=== PATIENT | female | born 1940 | race Caucasian/White ===

== ENCOUNTER 2016-06-09 12:17 | Observation (INO) | payer MEDICARE ==
[~2016-06-09] VITALS: Ht 165.1 cm; Wt 54.4 kg
[2016-06-09 12:41] LABS: BASOPHILS % (AUTO) 2 % (0-2); EOSINOPHILS # (AUTO) 0.1 10^3uL; EOSINOPHILS % (AUTO) 1 % (0-4); MEAN PLATELET VOLUME 8.6 FL (6.0-9.5); MONOCYTES % (AUTO) 14 % (3-11); NEUTROPHILS # (AUTO) 3.8 X10^3; NEUTROPHILS % (AUTO) 54 % (51-67); PLATELET COUNT 183 10^3uL (150-450)
[2016-06-09 12:44] LABS: MEAN CORPUSCULAR HEMOGLOBIN 36.7 PG (26.0-34.0); MEAN CORPUSCULAR HGB CONC 36.3 g/dL (31.0-37.0); MEAN CORPUSCULAR VOLUME 101 FL (80-100)
[2016-06-09 12:50] LABS: BILIRUBIN,URINE Negative (Negative); CLARITY,URINE Clear; GLUCOSE, URINE (UA) Negative (Negative); LEUKOCYTE ESTERASE ,URINE Negative (Negative)
[2016-06-09 12:51] LABS: COLOR,URINE Dark Yellow
[2016-06-09 12:53] LABS: URINE CENTRIFUGED VOLUME 11 mL
[2016-06-09 12:56] LABS: RBC,URINE 0-2 /HPF
[2016-06-09 12:58] LABS: AMPHETAMINE SCREEN, URINE Negative (Negative); CANNABINOID SCREEN, URINE Negative (Negative); METHAMPHETAMINE SCREEN URINE S NEGATIVE (NEGATIVE); OPIATE SCREEN URINE Negative (Negative); PROPOXYPHENE STAT NEGATIVE (NEGATIVE)
[2016-06-09 13:03] LABS: ALBUMIN 4.1 g/dL (3.4-5.0); ALKALINE PHOSPHATASE 90 U/L (38-126); ANION GAP 18.7 MEQ/L (3-15); BUN/CREATININE RATIO 19 (10-20); CALCULATED IONIZED CALCIUM 3.9 mg/dL (3.8-4.6); CREATINE KINASE 49 U/L (30-135); TOTAL PROTEIN 8.3 g/dL (6.4-8.5)
[2016-06-09] MEDS ORDERED: CALCIUM CARBONATE CHEWABLE 300 MG (TUMS) TABLET PO ONE (13:25)
[2016-06-09] MEDS ORDERED: LORazepam 2 MG/ML (ATIVAN) 1 ML VIAL IV ONE (13:25)
[2016-06-09] MEDS: MAGNESIUM SULFATE 1GM VIAL 2 GM, THIAMINE INJ 100 MG, MULTIVITAMIN INJ 10 ML in D5LR 1,... IV SCH ×5 (14:19→21:33)
--- NOTE | 2016-06-09 14:19 | NUR ---
Dr. Lance in and examines.
[2016-06-09] MEDS ORDERED: PROMETHAZINE HCL INJ 12.5 MG in SODIUM CHLORIDE 25 ML IV PRN (15:30)
[2016-06-09] MEDS ORDERED: CALCIUM CARBONATE CHEWABLE 300 MG (TUMS) TABLET PO PRN (15:30)
[2016-06-09] MEDS ORDERED: ONDANSETRON 2 MG/ML (Z0FRAN) 2 ML VIAL IV PRN (15:30)
[2016-06-09] MEDS ORDERED: IBUPROFEN 600 MG (MOTRIN) TAB PO PRN (15:30)
[2016-06-09] MEDS ORDERED: HALOPERIDOL 5 MG/ML (HALDOL) 1 ML AMP IM PRN (15:30)
[2016-06-09] MEDS ORDERED: MAG HYDROX/AL HYDROX/SIMETH 200-200-20/5 ML (MAG-AL PLUS) 30 ML UDC PO PRN (15:30)
[2016-06-09] MEDS ORDERED: THIAMINE 100 MG/ML (VITAMIN B1) 2 ML VIAL IM SCH (15:30)
[2016-06-09] MEDS ORDERED: LORazepam 2 MG/ML (ATIVAN) 1 ML VIAL IV PRN ×2 (15:30)
--- NOTE | 2016-06-09 15:40 | NUR ---
patient admitted to room 345. monitors placed and assessment is ongoing.
--- NOTE | 2016-06-09 15:58 | NUR ---
Med Rec completed via conversation with patient. Pt takes no medications.
[2016-06-09 16:00] VITALS: BP 136/74
[2016-06-09] MEDS ORDERED: ZIPRASIDONE 20 MG INJ (GEODON) VIAL IM PRN (16:00)
[2016-06-09] MEDS: MULTIVITAMIN INJ 10 ML, THIAMINE INJ 100 MG, MAGNESIUM SULFATE 1GM VIAL 2 GM in D5LR 1,... IV SCH (17:00)
[2016-06-09] MEDS: LORazepam 1 MG (ATIVAN) TABLET PO SCH ×2 (17:33→23:07)
[2016-06-09] MEDS: FOLIC ACID 1 MG TAB PO SCH (17:33)
[2016-06-09 17:44] VITALS: BP 161/83
--- NOTE | 2016-06-09 18:55 | NUR ---
Report received, care assumed. Pt has family members in room with her now. Pt is very confused. Unable to identify where she is or what the situation is. Denies discomfort. Will continue to monitor.
--- NOTE | 2016-06-09 18:55 | NUR ---
Report given to Amee VELAZCO and care relinquished
[2016-06-09 20:00] VITALS: BP 112/74
--- NOTE | 2016-06-09 20:30 | NUR ---
Pt took evening medications without difficulty. Atenolol 50 mg given, pulse rate 93. No other needs.
[2016-06-09] MEDS: FAMOTIDINE 20 MG (PEPCID) TABLET PO SCH (20:32)
[2016-06-09] MEDS: ATENOLOL 25 MG (TENORMIN) TAB PO SCH (20:33)
--- NOTE | 2016-06-09 22:00 | NUR ---
Pt has been extremely confused. Is completely out of touch with reality at this time. Pt doesn't make sense with most of what she says. Pt has been restless, pulls at coban around IV. IV site secured with coban and tape. Pt has removed telemetry pads multiple times. Have attempted to use tape over electrode pads, pt still pulls them off. Pt has been up to [facility] once, voided without difficulty. Gait unsteady. Required two persons to assist. Pt crawled into bed on one knee then stated she didn't know what to do or how to do it. Assisted pt in settling back into bed. Pt needs constant supervision. Does not remember things from one time to the next. Will continue to monitor. Bed alarm is on.
--- NOTE | 2016-06-10 02:00 | NUR ---
Pt is currently sleeping. Eyes closed, respirations even et unlabored. No signs discomfort. Pt moves around in her sleep quite a bit. Calls out in her sleep. No needs at this time.
--- NOTE | 2016-06-10 03:20 | NUR ---
Pt's tele shows sinus bradycardia with rate 45-65. She briefly drops to 45 then immediately goes back to 60's. Pt is currently sleeping. No signs distress or discomfort. Notified Dr. Lance of pulse rate decrease. No new orders.
[2016-06-10 04:00] VITALS: BP 141/67
[2016-06-10] MEDS ORDERED: MAGNESIUM SULFATE 1 GM/2 ML VIAL ONE (05:11)
[2016-06-10] MEDS ORDERED: THIAMINE 100 MG/ML (VITAMIN B1) 2 ML VIAL ONE (05:12)
[2016-06-10] MEDS ORDERED: MULTIVITAMINS (MVI) 2 5 ML VIALS IV ONE (05:12)
[2016-06-10] MEDS: LORazepam 1 MG (ATIVAN) TABLET PO SCH ×3 (05:17→17:14)
[2016-06-10] MEDS: MULTIVITAMIN INJ 10 ML, THIAMINE INJ 100 MG, MAGNESIUM SULFATE 1GM VIAL 2 GM in D5LR 1,... IV SCH (05:18)
--- NOTE | 2016-06-10 06:30 | NUR ---
Pt resting quietly now. Pt has been up to [facility] a few times during the night. Pt is not cooperative, has no ability to follow directions, continues to speak in disjointed sentences and content is nonsensical and flighty. No needs at this time. Will continue to monitor
[2016-06-10 06:31] LABS: MEAN PLATELET VOLUME 8.8 FL (6.0-9.5); WHITE BLOOD COUNT 5.04 10^3uL (4.0-11.0)
[2016-06-10 06:39] LABS: MEAN CORPUSCULAR HEMOGLOBIN 36.8 PG (26.0-34.0); MEAN CORPUSCULAR HGB CONC 36.6 g/dL (31.0-37.0)
[2016-06-10 07:09] LABS: ALBUMIN 3.2 g/dL (3.4-5.0); ALKALINE PHOSPHATASE 68 U/L (38-126); ANION GAP 11.7 MEQ/L (3-15); BUN/CREATININE RATIO 21 (10-20); CALCULATED IONIZED CALCIUM 3.9 mg/dL (3.8-4.6); MAGNESIUM* 2.4 mg/dL (1.6-2.3); PHOSPHORUS 2.9 mg/dL (2.4-4.9); TOTAL PROTEIN 6.8 g/dL (6.4-8.5)
[2016-06-10 08:30] VITALS: BP 103/67
[2016-06-10] MEDS: ATENOLOL 25 MG (TENORMIN) TAB PO SCH ×2 (08:51→20:29)
[2016-06-10] MEDS: FOLIC ACID 1 MG TAB PO SCH (08:52)
[2016-06-10] MEDS: FAMOTIDINE 20 MG (PEPCID) TABLET PO SCH ×3 (08:52→20:45)
[2016-06-10 08:55] VITALS: BP 103/67
[2016-06-10] MEDS ORDERED: ENOXAPARIN 40 MG/0.4 ML (LOVENOX) SYR SC SCH (09:00)
--- NOTE | 2016-06-10 09:56 | NUR ---
NUTRITION ASSESSMENT Level 1 Patient: Paradise Gauthier Age/Sex: 76/F Date Screened: 06-10-16 Weight: 121.6#/55.3 kg Height: 65 inches Primary Diagnosis: alcohol withdrawal, encephalopathy Diet Order: regular Relevant labs: glucose 106, magnesium 2.4, AST 239, ALT 163, hepatitis antigen (pending) Food allergies: N Nutrition Assessment Criteria Age over 80: N Body Mass Index (BMI) under 19: N Admission Screening Indicates Risk? 3 points Moderate/High Risk Diagnosis: 3 points TPN or PPN: N NPO or clear liquid diet: N Serum Glucose <70 or >180: N Hgb A1c >6.7: N/A Total: 6 points Risk Screen: __ Patient at low nutritional risk based on available data; reevaluate in 5-7 days __ Patient at moderate nutritional risk based on available data; reevaluate in 3-5 days _X_ Patient at high nutritional risk; complete Nutrition Assessment within 48 hours of admission.
[2016-06-10] MEDS ORDERED: WATER (STERILE) FOR INJECTION 10 ML VIAL INJ PRN ×2 (11:35→21:00)
--- NOTE | 2016-06-10 11:37 | NUR ---
NUTRITION ASSESSMENT Level II Patient: Paradise Gauthier Age/Sex: 76/F Date Assessed: 06-10-16 ASSESSMENT Pertinent History: Patient admitted with alcohol withdrawal and encephalopathy and screened at high nutritional risk secondary to diagnosis and concerns for ability to care for herself at home. PMHx includes hepatitis C and daily alcohol intake, unknown quantity. There is no documented weight history in her medical record. Meds/Nutrition: thiamine, MVI, Pepcid, folic acid, Lactated Ringers Weight: 121.6#/55.3 kg Height: 65 inches Body Mass Index (BMI): 20.3 [place] Body Weight : 125#/56.8 kg % IBW: 97% GASTROINTESTINAL Appetite: fair, eating 25-50% Diet Order: regular Unintentional loss of >10 lbs. in 3 months: N/A Difficult to chew/swallow: N Diabetes: N Relevant Labs: glucose 106, magnesium 2.4, AST 230, ALT 163, hepatitis panel (pending) Calculations for Nutritional Assessment Estimated calorie needs: 25-28 kcals/kg = 1,375-1,540 kcals Estimated protein needs: 0.8-1.0 g/kg = 44-55 g./day DIAGNOSIS 1. Nutrition Diagnosis: Excessive alcohol intake related to alcoholism as evidenced by reports of daily alcohol intake with encephalopathy and alcohol withdrawal, along with significant confusion and disorientation. NUTRITIONAL INTERVENTION Goal: Patient will receive adequate nutrition to meet her needs. Plan: Will provide regular diet as ordered and monitor intake for adequacy. Her alcohol addiction needs to be addressed via mental health before her nutritional status can be improved after DC from the hospital; will reassess as needed. MONITORING & EVALUATION _X_ Monitor patients menu selections _X_ Monitor patients food intake per nursing notes __ Monitor NPO/clear liquid days __ Monitor lab values __ Monitor I&O __ Other
[2016-06-10] MEDS ORDERED: NS FLUSH 10 ML PRN IV (11:40)
[2016-06-10] MEDS ORDERED: NS FLUSH 3 ML PRN IV (11:40)
--- NOTE | 2016-06-10 13:00 | NUR ---
The patient is up to exam this AM. She is alert to person but confused on place and time. She is cooperative and compliant with interventions and up in bed for morning meal. She appears to be in no distress as VSS and WNL. She requires assist when getting up to the BS. She is somewhat agitated at this time as redirections are needed to prevent her from pulling out IVs and monitors. Prompts and guidance are needed to help Paradise follow commands. With 1 assist the patient is able to get up to the shower using shower chair. She is able to help with cares but staff remains present to provide safety and guidance. When returning to assigned room Paradise is assisted back to bed. She frequently becomes agitated at this time while trying to climb out of bed and pull at chords and IV tubing. Assistance is required to the [facility] and the patient returns to bed but continues to express agitation and defiance with simple commands. 20 mg IV geodon is given at this time. She remains up in bed for lunch Addendum: 06/10/16 at 1447 by Jatin Sutton RN 10 mg Geodon IM Addendum: 06/10/16 at 1447 by Jatin Sutton RN NOT 20 mg Geodon IV
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
--- NOTE | 2016-06-10 15:00 | NUR ---
Patient is found in bed grabbing chords and wires from telemetry. Blood on gown and on linens. IV catheter is out at the bedside. Banana Bag stopped, linens and gown changed at this time as the patient is able to stand at the side of the bed with assist. No visible blood coming from previous IV site. Dr. Robles consulted and fluids stopped at this time. The patient is repositioned in bed for comfort.
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
--- NOTE | 2016-06-10 15:48 | NUR ---
PT in to work with the patient at this time.
[2016-06-10 16:28] VITALS: BP 146/66
[2016-06-10 16:29] VITALS: BP 146/66
[2016-06-10 17:07] LABS: HEPATITIS A ANTIBODY IGM Negative; HEPATITIS B CORE ABY IGM Negative; HEPATITIS B SURFACE ANTIGEN C Negative
--- NOTE | 2016-06-10 18:26 | NUR ---
Family in to visit with Dr. Robles regarding future plan and cares. [facility] to be contacted first thing ThursdayJune 11 for mental health evaluation to help the family gain the rights of guardianship.
--- NOTE | 2016-06-10 18:50 | NUR ---
RECEIVED REPORT FROM MORA HAYDEN AT THIS TIME. FAMILY AT BEDSIDE. PATIENT SLEEPING IN BED, RESTING COMFORTABLY.
[2016-06-10] MEDS ORDERED: HALOPERIDOL 5 MG/ML (HALDOL) 1 ML AMP IM PRN (19:55)
[2016-06-10] MEDS ORDERED: LORazepam 2 MG/ML (ATIVAN) 1 ML VIAL IV PRN (20:30)
[2016-06-10 20:37] VITALS: BP 154/73
[2016-06-10] MEDS ORDERED: ZIPRASIDONE 20 MG INJ (GEODON) VIAL IM PRN (21:00)
[2016-06-10] MEDS ORDERED: MAG HYDROX/AL HYDROX/SIMETH 200-200-20/5 ML (MAG-AL PLUS) 30 ML UDC PO PRN (21:30)
[2016-06-10] MEDS ORDERED: ONDANSETRON 2 MG/ML (Z0FRAN) 2 ML VIAL IV PRN (21:30)
[2016-06-10] MEDS ORDERED: IBUPROFEN 600 MG (MOTRIN) TAB PO PRN (21:30)
[2016-06-10] MEDS ORDERED: PROMETHAZINE HCL INJ 12.5 MG in SODIUM CHLORIDE 25 ML IV PRN (21:30)
[2016-06-10] MEDS ORDERED: CALCIUM CARBONATE CHEWABLE 300 MG (TUMS) TABLET PO PRN (23:30)
[2016-06-11] VITALS (7 sets, daily range): BP systolic 87–150; BP diastolic 50–75
[2016-06-11] MEDS: LORazepam 1 MG (ATIVAN) TABLET PO SCH ×5 (01:07→23:48)
--- NOTE | 2016-06-11 06:55 | NUR ---
REPORT GIVEN TO MORA LOVE PRIOR TO TRANSFER TO MED/SURG.
--- NOTE | 2016-06-11 07:15 | NUR ---
Patient arrives to room 301 via ED from ICU. Report received from Maria R Dolan RN. Patient sleeping upon arrival. Arouses easily to verbal stimuli. Alert and oriented to self only. Seizure and fall precautions implemented. HR RRR. Lung sounds CTAB. No apparent signs of SOA, pain, tremor, or other distress. Reoriented to place, time, situation, and plan of care for shift. Will continue to monitor.
[2016-06-11] MEDS: SODIUM CHLORIDE FLUSH 3 ML SYR IV SCH (08:04)
[2016-06-11] MEDS: ATENOLOL 25 MG (TENORMIN) TAB PO SCH ×2 (08:04→20:35)
[2016-06-11] MEDS: FAMOTIDINE 20 MG (PEPCID) TABLET PO SCH ×2 (08:11→20:35)
[2016-06-11] MEDS: FOLIC ACID 1 MG TAB PO SCH (08:11)
[2016-06-11] MEDS: ENOXAPARIN 40 MG/0.4 ML (LOVENOX) SYR SC SCH (08:12)
[2016-06-11] MEDS ORDERED: ONDANSETRON 4 MG (ZOFRAN) ORAL DISSOLVE TAB PO PRN (08:50)
[2016-06-11] MEDS ORDERED: NS FLUSH 3 ML DAILY IV SCH (09:00)
--- NOTE | 2016-06-11 09:37 | NUR ---
Angela Phan from [facility] will be here at 13:00 to evaluate Pt. JACQUELYN has informed Lissette and Grant of this. Grant plans on being here to visit with Reese.
[2016-06-11] MEDS ORDERED: SODIUM CHLORIDE FLUSH 3 ML SYR IV PRN (11:40)
[2016-06-11] MEDS ORDERED: SODIUM CHLORIDE FLUSH 10 ML SYR IV PRN (11:40)
--- NOTE | 2016-06-11 15:00 | NUR ---
Angela Phan with [facility] completed an assessment with Pt. 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 Angela recommended Pt. have 24 hour supervision. Angela and JACQUELYN discussed this with Pt. son in law Grant. Grant stated he has contacted an compliance attorney and has spoken to Giselle with APS at [facility]. JACQUELYN explained Lissette and him will need to enact the DPOA and find placement for Pt. since she isn't able to make decisions for herself at this time. He understood and stated he did talk to [facility] assisted living but he doesn't believe she would meet their critieria. His and he plan to contact [facility] in the morning. JACQUELYN stated she may also contact them and provide them with information. Grant was agreeable to this.
[2016-06-11] MEDS ORDERED: LORazepam 2 MG/ML (ATIVAN) 1 ML VIAL IV PRN (15:30)
--- NOTE | 2016-06-11 17:48 | NUR ---
Patient sitting up in recliner. Daughter at bedside. Denies pain or distress. Expresses concern about current situation and pending placement. Positive reassurance provided. Yellow gown, chair alarm, and tabs alarm intact for safety. No apparent signs of distress, tremor, or other symptoms. Will continue to monitor.
--- NOTE | 2016-06-11 20:00 | NUR ---
Patient rests in wheelchair at nurses station. Interacts with staff at times. Is oriented to self only. Drinking sprite. No discomforts voiced. Does not want to go to her room yet.
--- NOTE | 2016-06-11 22:30 | NUR ---
Sitting in chair at nurses station. still not wanting to go to bed. Continues to interact with staff. Appropriate at times, other times yells out different names.
--- NOTE | 2016-06-11 23:30 | NUR ---
Patient taken to room. Ready for sleep. Ambulates with the assist of two and gait belt. Side rails up. Bed alarm on. Call light within reach. Seizure precautions maintained.
--- NOTE | 2016-06-12 04:21 | NUR ---
Patient resting quietly in bed since 2329. Respirations non-labored. Call light within reach.
[2016-06-12] MEDS: LORazepam 1 MG (ATIVAN) TABLET PO SCH ×4 (05:45→23:49)
--- NOTE | 2016-06-12 06:29 | NUR ---
Resting in bed. Patient is a little confused this morning. Pleasant. Seizure Precautions maintained. No seizure activity noted tonight. Bed alarm remains on. Disoriented at times, other times fairly clear. Ambulated to the bathroom using gait belt and assist of one this morning. Patient is unsteady at times. Call light within reach.
[2016-06-12 06:55] LABS: ALBUMIN 3.5 g/dL (3.4-5.0); ANION GAP 13.8 MEQ/L (3-15); CALCULATED IONIZED CALCIUM 3.9 mg/dL (3.8-4.6); TOTAL PROTEIN 7.3 g/dL (6.4-8.5)
[2016-06-12 07:59] VITALS: BP 147/81
[2016-06-12] MEDS ORDERED: MULTIVITAMIN W/MINERALS (THERAGRAN M) TABLET PO SCH (08:00)
[2016-06-12] MEDS ORDERED: THIAMINE 100 MG (VITAMIN B-1) TAB PO SCH (08:00)
--- NOTE | 2016-06-12 08:05 | NUR ---
Pt assessments completed. Pt remains very confused and unable to reorient to present. Pt is pleasant and uncombative. Pt takes meds with difficult.
[2016-06-12] MEDS: FOLIC ACID 1 MG TAB PO SCH (08:26)
[2016-06-12] MEDS: FAMOTIDINE 20 MG (PEPCID) TABLET PO SCH ×2 (08:26→22:11)
[2016-06-12] MEDS: THIAMINE 100 MG (VITAMIN B-1) TAB PO SCH (08:26)
[2016-06-12] MEDS: ATENOLOL 25 MG (TENORMIN) TAB PO SCH ×2 (08:27→22:11)
[2016-06-12] MEDS: MULTIVITAMIN W/MINERALS (THERAGRAN M) TABLET PO SCH (08:27)
[2016-06-12] MEDS: ENOXAPARIN 40 MG/0.4 ML (LOVENOX) SYR SC SCH (08:28)
[2016-06-12] MEDS: SODIUM CHLORIDE FLUSH 3 ML SYR IV SCH (08:28)
[2016-06-12] MEDS ORDERED: POTASSIUM CHLORIDE ER 20 MEQ TABLET PO SCH (09:00)
--- NOTE | 2016-06-12 12:24 | NUR ---
Report received from Ashley VELAZCO and care assumed.
--- NOTE | 2016-06-12 13:09 | NUR ---
Visited with Pt. son in law Grant who was agreeable to SW contacting [facility] and [facility] to see about getting Pt. accepted to one of these facilities. JACQUELYN has sent information to these facilities. [facility] and [facility] Pt. They are both concerned that Pt. does not have a primary care physician. They will check with their medical directors to see if they are willing to oversee her care. SW waiting to hear back from both of these facilities. [facility] is not able to accept Pt. They feel she would benefit from a stay [facility] which would help determine if they could care for here. They are also more of an assisted living facility. JACQUELYN updated Grant and will let him know when JACQUELYN hears back from the other two facilities.
--- NOTE | 2016-06-12 15:20 | NUR ---
US tech present to do US of abdomen. Pt tolerated it well. Pt remains confused.
--- NOTE | 2016-06-12 15:42 | NUR ---
Pt. has been accepted to [facility] for alf placement. Plan for Pt. to discharge tomorrow. Pt. will go to the healthcare side. Brandie went to [facility] to visit and start admission paperwork.
[2016-06-12 17:52] VITALS: BP 163/80
--- NOTE | 2016-06-12 18:38 | NUR ---
Pt has been confused all day. Has been attempting to get out of bed. Pt does not know where she is, thinks she is still in [place]. Bed alarm is on and rails up x 3 for pt safety.
--- NOTE | 2016-06-12 19:56 | NUR ---
Resting in bed. Is alert and confused to place and time. Drowsy at this time, yet arouses easily. Side rails up x 2. Bed alarm on. Patient appears comfortable at he present time.
--- NOTE | 2016-06-12 22:54 | NUR ---
Patient ambulated to the bathroom pushing walker. Incontinent of urine. Good gabo care given. Returned to bed. Side rails up x2. Bed alarm on. Remains confused to person. place and time. Call light within reach. Patient does not use light. Reassurance given. Family brought clothes for patient to go to the [facility] tomorrow.
[2016-06-13 00:23] VITALS: BP 147/80
--- NOTE | 2016-06-13 05:06 | NUR ---
Pt has been resting in bed most of this shift, sleeping off and on. Has taken medication without difficulty. Bed alarm is on, call light is in reach. Will continue to monitor frequently.
[2016-06-13] MEDS: LORazepam 1 MG (ATIVAN) TABLET PO SCH (05:38)
[2016-06-13 06:46] LABS: ALBUMIN 3.4 g/dL (3.4-5.0); ANION GAP 14.1 MEQ/L (3-15); CALCULATED IONIZED CALCIUM 3.9 mg/dL (3.8-4.6); TOTAL PROTEIN 7.1 g/dL (6.4-8.5)
[2016-06-13] MEDS ORDERED: POTASSIUM CHLORIDE ER 20 MEQ TABLET PO SCH (08:00)
[2016-06-13] MEDS: THIAMINE 100 MG (VITAMIN B-1) TAB PO SCH (08:42)
[2016-06-13] MEDS: MULTIVITAMIN W/MINERALS (THERAGRAN M) TABLET PO SCH (08:42)
[2016-06-13] MEDS: FOLIC ACID 1 MG TAB PO SCH (08:42)
[2016-06-13] MEDS: ENOXAPARIN 40 MG/0.4 ML (LOVENOX) SYR SC SCH (08:42)
[2016-06-13] MEDS: FAMOTIDINE 20 MG (PEPCID) TABLET PO SCH (08:42)
[2016-06-13] MEDS: SODIUM CHLORIDE FLUSH 3 ML SYR IV SCH (08:43)
[2016-06-13] MEDS: ATENOLOL 25 MG (TENORMIN) TAB PO SCH (08:45)
--- NOTE | 2016-06-13 09:07 | NUR ---
[facility] transportation will be here at 09:30 to get Pt. and take her to [facility]. JACQUELYN contacted Grant and updated him on Pt. discharge plans.
--- NOTE | 2016-06-13 09:30 | NUR ---
Report called to MORA Jimenez at [facility]. Dismissed via wheelchair to [facility] transportation van. No IV access noted. All possessions sent with patient. No further needs.
== END 2016-06-13 09:38 ==
LOC: ED 12:18 → INTOOBSV 14:25 → UNDOADMIN 14:25 → ICU 14:25 → MED/SURG 14:25
PROVIDERS: ADMIT Family Medicine; ATTEND Family Medicine
DX: F10.26 Alcohol dependence with alcohol-induced persisting amnestic disorder (principal); F10.220 Alcohol dependence with intoxication, uncomplicated; K70.10 Alcoholic hepatitis without ascites; E80.6 Other disorders of bilirubin metabolism; E87.6 Hypokalemia; Y90.6 Blood alcohol level of 120-199 mg/100 ml
CPT/HCPCS: 36415; 51701; 70450; 71010; 76700; 80053; 80074; 81003; 81015; 82140; 82248; 82550; 82553; 82977; 83605; 83690; 83735; 83880; 84100; 84443; 84484; 85025; 85027; 85610; 86140; 93005; 96366; 96372; 96374; 96375; 96411; 97110; 97161; 97166; 97535; 99285; A9270; G0378; G0478; G0480; J1650; J2060; J3411; J3475; J3486; 80307; 80320; 80329; 93010; 99218

== ENCOUNTER → 2016-06-09 | Outpatient (CLI) | payer MEDICARE | LOC: EMS 12:10 | PROVIDERS: ATTEND Family Medicine | DX: R41.0 Disorientation, unspecified (principal) ==

== ENCOUNTER → 2016-06-16 | Outpatient (REF) | payer MEDICAID, MEDICARE ==
[2016-06-16 10:48] LABS: BILIRUBIN,URINE Negative (Negative); CLARITY,URINE Clear; GLUCOSE, URINE (UA) Negative (Negative); LEUKOCYTE ESTERASE ,URINE Negative (Negative)
[2016-06-16 10:49] LABS: COLOR,URINE Dark Yellow
== END ==
LOC: LAB 10:22
PROVIDERS: ATTEND Family Medicine
DX: N39.0 Urinary tract infection, site not specified (principal)
CPT/HCPCS: 81003

== ENCOUNTER → 2016-06-25 | Outpatient (REF) | payer MEDICAID, MEDICARE ==
[2016-06-25 12:30] LABS: CLARITY,URINE Cloudy; COLOR,URINE Brown; GLUCOSE, URINE (UA) Negative (Negative); LEUKOCYTE ESTERASE ,URINE Negative (Negative); PH,URINE 5.5 (5.0 - 8.0)
[2016-06-25 12:33] LABS: BILIRUBIN,URINE 1+ (Negative)
[2016-06-25 12:49] LABS: RBC,URINE None Seen /HPF; URINE CENTRIFUGED VOLUME 12 mL
[2016-06-25 12:50] LABS: AMORPHOUS SEDIMENT,UR 1+ /HPF
== END ==
LOC: LAB 11:20
PROVIDERS: ATTEND Family Medicine
DX: N39.0 Urinary tract infection, site not specified (principal)
CPT/HCPCS: 81003; 81015